=== PATIENT | male | born 2000 ===

== ENCOUNTER 2022-01-13 22:04 | Emergency (ER) | payer OTHER ==
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
[2022-01-14 00:17] VITALS: BP 147/83
== END 2022-01-14 00:17 ==
LOC: ED 22:04
DX: M25.561 Pain in right knee (principal); V89.2XXA Person injured in unspecified motor-vehicle accident, traffic, initial encounter; Y93.89 Activity, other specified; Y92.89 Other specified places as the place of occurrence of the external cause; Y99.8 Other external cause status
CPT/HCPCS: 99283